=== PATIENT | female | born 1980 | race Caucasian/White ===

== ENCOUNTER 2017-01-06 15:06 | Outpatient (CLI) | payer BC ==
--- NOTE | 2017-01-06 16:31 | RAD ---
LEFT KNEE FOUR VIEWS: Date: 01-06-17 Comparison: None. History: Left knee pain for two months. FINDINGS: No knee joint effusion, displaced fracture, or evidence of dislocation seen. IMPRESSION: No acute osseous abnormality. POS: [facility]
== END 2017-01-06 15:07 | disposition home or self-care (01) ==
LOC: SCSRAD 15:06
PROVIDERS: ATTEND Family Medicine
DX: M25.562 Pain in left knee (principal)

== ENCOUNTER 2017-09-12 12:35 | Outpatient (CLI) | payer BC ==
--- NOTE | 2017-09-12 13:27 | RAD ---
CERVICAL SPINE 3 VIEWS: Date: 09/12/17 HISTORY: 37-year-old female with history of cervical radiculopathy, occasional tingling in right 4th and 5th d igits, with right-sided neck pain. FINDINGS: Neutral, flexion, and extension lateral views of the cervical spine are performed. No evidence of abn ormal translation between flexion and extension. No prevertebral soft tissue swelling. Very mild spon dylosis. IMPRESSION: Very mild spondylosis. No abnormal translation between flexion and extension. POS: [facility]
--- NOTE | 2017-09-12 15:11 | MRI ---
MRI CERVICAL SPINE WITHOUT IV CONTRAST: Date: 09/12/17 HISTORY: Cervical radiculopathy, spondylosis with radiculopathy, cervical region. FINDINGS: The vertebral body heights and marrow signal are well maintained, except for a focal area of increase d T1 and T2 signal in the C4 vertebral body consistent with hemangioma. A similar smaller lesion is a lso seen in the anterior superior aspect of T1. There are disc osteophyte complexes at C5-6 and C6-7 levels. There is associated left-sided neural foraminal stenosis at these levels, moderately severe a t C5-6 and severe at C6-7 levels. No cord impingement or compression is seen. The cervical spinal cor d demonstrates normal course, caliber, and signal. No tonsillar herniation is seen. Paraspinal muscul ature is normal. IMPRESSION: 1. Cervical spondylosis with left-sided neural foraminal stenosis at C5-6 and C6-7 levels. 2. Vertebral body hemangiomas. POS: [facility]
--- NOTE | 2017-09-12 15:26 | MRI ---
MRI LUMBAR SPINE: DATE: 09/12/17. PROVIDED CLINICAL HISTORY: Right-sided sciatica. FINDINGS: Five lumbar-type vertebral bodies are seen. Lumbar alignment appears normal. Vertebral body heights appear preserved. Disk desiccation at L4-5 without loss of disk space height. No focal concerning regional marrow signal abnormality evident. The conus medullaris is normal in signal and terminates at an appropriate level. The visualized extraspinal soft tissues appear unremarkable. At T12-L1, there is no significant central canal or foraminal narrowing apparent. At L1-2, there is no significant central canal or foraminal narrowing apparent. At L2-3, there is no significant central canal or foraminal narrowing apparent. At L3-4, there is a small central disk protrusion without evidence for significant central canal or f oraminal narrowing. At L4-5, there is a broad-based disk bugle with an annular tear involving the dorsal disk margin. No significant central canal or foraminal narrowing apparent. There is bilateral facet arthritis. At L5-S1, there is mild bilateral facet arthritis without significant central canal or foraminal narr owing apparent. IMPRESSION: Lumbar degenerative changes as described above. POS: [facility]
== END 2017-09-12 12:36 | disposition home or self-care (01) ==
LOC: TBSIIMAG 12:35
PROVIDERS: ATTEND Neurological Surgery
DX: M47.26 Other spondylosis with radiculopathy, lumbar region (principal); M47.22 Other spondylosis with radiculopathy, cervical region; M47.27 Other spondylosis with radiculopathy, lumbosacral region; M99.81 Other biomechanical lesions of cervical region; D18.09 Hemangioma of other sites
CPT/HCPCS: 72040; 72141; 72148

== ENCOUNTER 2018-04-28 14:33 | Outpatient (CLI) | payer BC ==
--- NOTE | 2018-04-28 17:34 | RAD ---
AP ABDOMINAL RADIOGRAPH 04/28/18 HISTORY: Epigastric abdominal pain. Altered bowel function. Abdominal distention. COMPARISON: None available. FINDINGS: There is a nonspecific bowel gas pattern. Punctate radiopaque density overlies the left iliac bone wh ich is difficult to further localize. Phleboliths overlie the pelvis. No suspicious calcifications ar e identified. Osseous structures appear intact. IMPRESSION: 1. Nonspecific bowel gas pattern. 2. Punctate radiopaque/metallic density overlying the left iliac bone which overlies the region of the colon as well. This cannot be further localized but may represent a radiopaque/metallic foreig n body. POS: [facility]
== END 2018-04-28 14:34 | disposition home or self-care (01) ==
LOC: BICRAD 14:33
PROVIDERS: ATTEND Internal Medicine Gastroenterology
DX: R10.13 Epigastric pain (principal); R19.4 Change in bowel habit; R14.0 Abdominal distension (gaseous)
CPT/HCPCS: 74018

== ENCOUNTER 2018-08-03 14:36 | Outpatient (CLI) | payer BC | END 2018-08-03 14:37 | disposition home or self-care (01) | LOC: CTENTCT 14:36 | PROVIDERS: ATTEND Otolaryngology Plastic Surgery within the Head & Neck | DX: J32.9 Chronic sinusitis, unspecified (principal) | CPT/HCPCS: 70486 ==

== ENCOUNTER 2018-09-30 05:47 | Day surgery (SDC) | payer BC ==
[2018-09-29 10:06] VITALS: BMI 27.4
[2018-09-30] MEDS ORDERED: Oxymetazoline HCl 0.05% ( 15 ML ) ONE ×2 (06:16→07:16)
[2018-09-30] MEDS ORDERED: Lidocaine 1% w/Epinephrine 1:100K 20 ML VIAL ONE (07:16)
[2018-09-30] MEDS ORDERED: Bacitracin Zinc Ointment 30 gm TUBE ONE (07:16)
[2018-09-30] MEDS ORDERED: Fentanyl 100 MCG/2 ML VIAL ONE ×2 (07:33→08:22)
[2018-09-30] MEDS ORDERED: Midazolam HCl 2 mg/2 ml Vial ONE ×2 (07:33→07:35)
[2018-09-30] MEDS ORDERED: Promethazine HCl 25 MG/ML VIAL ONE (08:22)
[2018-09-30] MEDS ORDERED: Meperidine HCl/PF 25 MG/ML VIAL ONE (08:46)
[2018-09-30] MEDS ORDERED: Morphine 2 MG/ML SYRINGE ONE (09:41)
[2018-09-30] MEDS ORDERED: HYDROcodone/Acetaminophen 5/325 mg Tablet ONE (10:33)
--- NOTE | 2018-09-30 12:03 | OP ---
DATE OF PROCEDURE: 09/30/2018 PREOPERATIVE DIAGNOSES: 1. Chronic rhinosinusitis. 2. Nasal septal deviation. 3. Bilateral inferior turbinate hypertrophy. POSTOPERATIVE DIAGNOSES: 1. Chronic rhinosinusitis. 2. Nasal septal deviation. 3. Bilateral inferior turbinate hypertrophy. PROCEDURES PERFORMED: 1. Bilateral endoscopic sinus surgery, total ethmoidectomies. 2. Bilateral endoscopic sinus surgery, maxillary antrostomies. 3. Bilateral endoscopic sinus surgery, frontal sinusotomies. 4. Nasal septoplasty. 5. Bilateral inferior turbinate submucosal resection. ESTIMATED BLOOD LOSS: 20 mL. COMPLICATIONS: None. ANESTHESIA: GETA. DESCRIPTION OF PROCEDURE: Patient was taken to the operating room and placed supine on the table. General endotracheal anesthesia was obtained by the anesthesia staff. Tube was secured in the left lower lip. Patient was then placed in the beach chair position, and Afrin pledgets were placed in the nasal cavity. Injections of 1% lidocaine with 1:100,000 epinephrine were made into the nasal septum as well as the inferior turbinates. Patient was then prepped and draped in standard surgical fashion for nasal surgery. Following this, the Afrin pledgets were removed. A Hilton incision was made on the left nasal septum. Submucoperichondrial dissection was performed. The deviated portions of the septum included portions of the cartilage and the bony septum. These isolated areas were removed using 3 cutting rongeurs. There was noted to be a large dorsal and caudal strut, left intact for support of the nose. The mucoperichondrial flaps were then reapproximated using a 4-0 gut stitch. Any straight pieces of cartilage were crushed prior to this and placed between the mucoperichondrial flaps. Following this, the inferior turbinates were then punctured with a submucosal coblation wand, and submucosal coblations were performed of multiple areas of the inferior portion of the anterior inferior turbinate. Please note that the submucosal microdebrider was used to submucosally resect the anterior and inferior portions of the inferior turbinates bilaterally. Following this, a 0-degree endoscope was advanced in the middle meatus. The left middle turbinate was large, had a large kel bullosa deformity present lateralizing the uncinate process. A sickle knife was used to vertically incise the kel bullosa on the left side, and the left lateral wall of this kel bullosa was then resected using the microdebrider and straight Blakesley forceps. Following this, the uncinate process was visualized bilaterally and was anteriorly fractured using a ball-ended probe. The 0-degree microdebrider and curved microdebrider were used to further remove the uncinate process bilaterally. Following this, the natural maxillary sinus ostia was identified and was gently widened using the curved microdebrider bilaterally. Following this, ethmoidal bulla was identified and was punctured on its medial and inferior aspect with the microdebrider and was removed using the microdebrider and up-biting Blakesley forceps. Following this, the grand lamella was identified and was punctured into the posterior ethmoidal cells. Working from posterior to anterior, the ethmoidal cells were opened using the 0-degree microdebrider, curved microdebrider, and up-biting Blakesley forceps. Following this, a 45-degree endoscope along with a 40-degree microdebrider blade was used to further open the frontal sinus ostia bilaterally. Following this, the nasal cavity was irrigated. Mirapex was placed within the middle meatus. Braga splints were placed and secured. The patient tolerated the procedure well. Job ID: [id number]
== END 2018-09-30 11:35 | disposition home or self-care (01) ==
LOC: SDC 05:47
PROVIDERS: ATTEND Otolaryngology Plastic Surgery within the Head & Neck
PROC: 09BL8ZZ Excision of Nasal Turbinate, Via Natural or Artificial Opening Endoscopic (ICD-10-PCS; principal; 2018-09-30)
PROC: 099T8ZZ Drainage of Left Frontal Sinus, Via Natural or Artificial Opening Endoscopic (ICD-10-PCS; principal; 2018-09-30)
PROC: 099U8ZZ Drainage of Right Ethmoid Sinus, Via Natural or Artificial Opening Endoscopic (ICD-10-PCS; principal; 2018-09-30)
PROC: 099V8ZZ Drainage of Left Ethmoid Sinus, Via Natural or Artificial Opening Endoscopic (ICD-10-PCS; principal; 2018-09-30)
PROC: 099Q8ZZ Drainage of Right Maxillary Sinus, Via Natural or Artificial Opening Endoscopic (ICD-10-PCS; principal; 2018-09-30)
PROC: 099R8ZZ Drainage of Left Maxillary Sinus, Via Natural or Artificial Opening Endoscopic (ICD-10-PCS; principal; 2018-09-30)
PROC: 099S8ZZ Drainage of Right Frontal Sinus, Via Natural or Artificial Opening Endoscopic (ICD-10-PCS; principal; 2018-09-30)
PROC: 09BM8ZZ Excision of Nasal Septum, Via Natural or Artificial Opening Endoscopic (ICD-10-PCS; principal; 2018-09-30)
DX: J32.8 Other chronic sinusitis (principal); J34.2 Deviated nasal septum; J34.3 Hypertrophy of nasal turbinates; Z88.1 Allergy status to other antibiotic agents; Z88.3 Allergy status to other anti-infective agents
CPT/HCPCS: 85014; J2001; J2175; J2250; J2270; J2550; J3010

== ENCOUNTER 2020-09-22 10:30 | Outpatient (CLI) | payer OTHER | END 2020-09-22 10:31 | disposition home or self-care (01) | LOC: SCSRAD 10:30 | PROVIDERS: ATTEND Internal Medicine Rheumatology | DX: M54.2 Cervicalgia (principal); M54.5 Low back pain; M47.812 Spondylosis without myelopathy or radiculopathy, cervical region; M51.36 Other intervertebral disc degeneration, lumbar region | CPT/HCPCS: 72052; 72100 ==